=== PATIENT | male | born 1965 | race Caucasian/White ===

== ENCOUNTER → 2021-03-13 | Outpatient (CLI) | payer OTHER ==
[~2021-03-13] MED LIST: BENZ100A PO; IBUP600 PO; LISI20 PO; Prednisone20 MG PO; Ultram50 MG PO; Zithromax250 MG PO
== END | disposition home or self-care (01) ==
LOC: LAB SHORT 16:48
DX: J02.9 Acute pharyngitis, unspecified (principal)
CPT/HCPCS: 87081

== ENCOUNTER 2022-01-07 11:43 | Emergency (ER) | payer BC ==
[~2022-01-07] VITALS: Ht 185.4 cm; Wt 92.5 kg
[2022-01-07 13:20] LABS: BASOPHILS ABSOLUTE AUTO 0.06 K/mm3 (0.00-0.23); BASOPHILS PERCENT AUTO 1 % (0-2); EOSINOPHILS ABSOLUTE AUTO 0.16 K/mm3 (0.00-0.68); EOSINOPHILS PERCENT AUTO 3 % (0-6); Hematocrit 47.2 % (37.0-53.0); Hemoglobin 15.9 g/dL (13.5-17.5); IMMATURE GRAN ABSOLUTE AUTO 0.02 K/mm3 (0.00-0.10); IMMATURE GRAN PERCENT AUTO 0 % (0-1); LYMPHOCYTES ABSOLUTE AUTO 2.94 K/mm3 (0.84-5.20); LYMPHOCYTES PERCENT AUTO 48 % (21-46); MONOCYTES ABSOLUTE AUTO 0.43 K/mm3 (0.16-1.47); MONOCYTES PERCENT AUTO 7 % (4-13); Mean Corpuscular HGB 33.5 pg (26.0-34.0); Mean Corpuscular HGB Conc 33.7 g/dL (31.5-36.5); Mean Corpuscular Volume 100 fL (80-100); Mean Platelet Volume 9.6 fL (9.1-12.4); NEUTROPHILS ABSOLUTE AUTO 2.55 K/mm3 (1.96-9.15); NEUTROPHILS PERCENT AUTO 41 % (41-73); Platelet Count 239 K/mm3 (150-400); RDW Coefficient Variation 11.6 % (11.7-14.2); RDW Standard Deviation 42.9 fL (35.1-46.3); Red Blood Cell Count 4.74 M/mm3 (4.30-5.90); White Blood Cell Count 6.16 K/mm3 (4.00-11.30)
[2022-01-07 14:06] LABS: Albumin, Blood 3.9 g/dL (3.4-5.0); Albumin/Globulin Ratio 0.9 (0.8-1.8); Bilirubin, Total 0.3 mg/dL (0.1-1.0); Bun/Creatinine Ratio 17.4 (12.0-20.0); Calcium, Blood 8.6 mg/dL (8.5-10.1); Creatinine, Blood 0.86 mg/dL (0.60-1.20); Globulin, Blood 4.2 g/dL (2.2-4.0); Potassium, Blood 4.1 mmol/L (3.5-5.5); Total Protein, Blood 8.1 g/dL (6.4-8.2)
[2022-01-07 14:58] LABS: Source, Urine Clean Catch
[2022-01-07 15:04] LABS: Appearance, Urine Clear (Clear); Bilirubin, Urine Neg (Neg); Blood, Urine Neg (Neg); Color, Urine Yellow (P-Yellow); Glucose Qualitative, Urine Neg (Neg); Ketones, Urine Neg (Neg); Leukocyte Esterase, Urine Neg (Neg); Nitrite, Urine Neg (Neg); Protein, Urine Neg (Neg); Specific Gravity, Urine 1.025 (1.003-1.022); Urobilinogen, Urine NORM (Normal)
== END 2022-01-07 17:05 | disposition home or self-care (01) ==
LOC: ER 11:43
PROVIDERS: Physician Assistant
DX: I83.91 Asymptomatic varicose veins of right lower extremity (principal); I10 Essential (primary) hypertension; F17.220 Nicotine dependence, chewing tobacco, uncomplicated; Z79.899 Other long term (current) drug therapy; Z79.52 Long term (current) use of systemic steroids
CPT/HCPCS: 36415; 80053; 81003; 82550; 82607; 82746; 83690; 84550; 85025; 93971

== ENCOUNTER 2024-09-01 06:42 | Emergency (ER) | payer OTHER ==
[~2024-09-01] VITALS: Ht 182.9 cm; Wt 90.7 kg
[2024-09-01] MEDS ORDERED: HYDCHL25 PO (07:35)
[2024-09-01] MEDS ORDERED: IRBESARTAN150 M3 (07:35)
[2024-09-01] MEDS ORDERED: Ketorolac Tromethamine 30mg Vial IM ONE (07:55)
[2024-09-01] MEDS ORDERED: Morphine Sulfate IR 15 MG Tab PO ONE (09:20)
[2024-09-01] MEDS ORDERED: ACET500 PO (09:21)
[2024-09-01] MEDS ORDERED: IBUP400 PO (09:21)
[2024-09-01] MEDS ORDERED: Morphine Sulfat15 MG PO (09:21)
[2024-09-01 09:50] VITALS: BP 176/70
== END 2024-09-01 09:51 | disposition home or self-care (01) ==
LOC: ER 06:42
DX: S20.219A Contusion of unspecified front wall of thorax, initial encounter (principal); R07.1 Chest pain on breathing; I10 Essential (primary) hypertension; F17.220 Nicotine dependence, chewing tobacco, uncomplicated; Y04.2XXA Assault by strike against or bumped into by another person, initial encounter
CPT/HCPCS: 71111; 71120; 93005; 93010; A9270; J1885